=== PATIENT | female | born 1980 | race Caucasian/White ===

== ENCOUNTER → 2017-11-04 | Outpatient (CLI) | payer BC ==
[2017-11-04 08:44] LABS: Basophils # (A) 0.1 k/uL (0-0.2); Basophils % (A) 1 %; Eosinophils # (A) 0.2 k/uL (0-0.7); Eosinophils % (A) 3 %; HCT 41.9 % (34.0-46.0); HGB 14.4 gm/dL (11.4-16.0); Lymphocytes # (A) 2.8 k/uL (1.0-4.8); Lymphocytes % (A) 30 %; MCH 31.4 pg (25.0-35.0); MCHC 34.3 g/dL (31.0-37.0); MCV 91.4 fL (80.0-100.0); Mean Platelet Volume 7.7; Monocytes # (A) 0.4 k/uL (0-1.0); Monocytes % (A) 4 %; Neutrophils # (A) 5.6 k/uL (1.3-7.7); Neutrophils % (A) 62 %; Platelet Count 220 k/uL (150-450); RBC 4.58 m/uL (3.80-5.40); RDW 12.2 % (11.5-15.5); WBC 9.1 k/uL (3.8-10.6)
== END | disposition home or self-care (01) ==
LOC: LABPAT 08:24
PROVIDERS: ATTEND Obstetrics & Gynecology
DX: Z01.812 Encounter for preprocedural laboratory examination (principal)
CPT/HCPCS: 36415; 85025

== ENCOUNTER → 2018-01-24 | Outpatient (CLI) | payer BC ==
[2018-01-24 12:11] LABS: Basophils % (A) 1 %; Eosinophils # (A) 0.2 k/uL (0-0.7); Eosinophils % (A) 2 %; HCT 40.2 % (34.0-46.0); HGB 13.8 gm/dL (11.4-16.0); Lymphocytes # (A) 1.8 k/uL (1.0-4.8); Lymphocytes % (A) 26 %; MCH 31.1 pg (25.0-35.0); MCHC 34.3 g/dL (31.0-37.0); MCV 90.5 fL (80.0-100.0); Monocytes # (A) 0.3 k/uL (0-1.0); Monocytes % (A) 4 %; Neutrophils # (A) 4.7 k/uL (1.3-7.7); Neutrophils % (A) 67 %; Platelet Count 202 k/uL (150-450); RBC 4.45 m/uL (3.80-5.40); RDW 12.5 % (11.5-15.5)
[2018-01-24 12:23] LABS: Anion Gap 7 mmol/L; Blood Urea Nitrogen 11 mg/dL (7-17); Calcium 9.2 mg/dL (8.4-10.2); Carbon Dioxide 25 mmol/L (22-30); Chloride 108 mmol/L (98-107); Glucose 93 mg/dL (74-99); Potassium 4.7 mmol/L (3.5-5.1); Sodium 140 mmol/L (137-145)
== END | disposition home or self-care (01) ==
LOC: LABWHC1 11:28
PROVIDERS: ATTEND Obstetrics & Gynecology
DX: Z01.812 Encounter for preprocedural laboratory examination (principal)
CPT/HCPCS: 36415; 80048; 85025

== ENCOUNTER 2018-01-31 05:46 | Day surgery (SDC) | payer BC ==
[2018-01-24 15:47] VITALS: BMI 32.3
[~2018-01-31 05:46] MED LIST: ceFAZolin IN SWFI 2 GM/20 ML SYRINGE IVP ONE
[2018-01-31] MEDS ORDERED: ONDANSETRON 4 MG/2 ML VIAL IVP ONE (05:57)
[2018-01-31] MEDS ORDERED: DEXAMETHASONE SOD PHOSPHATE 10 MG/ML 1 ML VIAL IV ONE (05:57)
[2018-01-31] MEDS ORDERED: HYDROmorphone 0.5 MG/0.5 ML SYRINGE IVP PRN (05:57)
[2018-01-31] MEDS: LACTATED RINGERS 1,000 ML IV SCH (06:34)
[2018-01-31] MEDS ORDERED: LIDOCAINE 1% 20 ML VIAL (10MG/ML) FOR IV START INTRADERMA ONE (06:34)
--- NOTE | 2018-01-31 07:33 | P.HPOB ---
History of Present Illness H&P Date: 01/31/18 Chief Complaint: Menorrhagia: Dysmenorrhea Mindi is a 37-year-old female who has a history of heavy and painful periods this has been going on for a number of months and is not improving. She is scheduled for a robotic-assisted laparoscopic hysterectomy possible KIRILL and possible BSO. Risks/benefits/alternatives to this procedure were discussed with the patient in detail and all questions were answered for her prior to proceeding to the operating room. It was also noted on ultrasound she does have a thickened endometrium ultrasound shows her uterus to be 9 x 5 x 4 cm. Discussing options with the patient discussions for more conservative management were made but she is certain that she would prefer to have some type of permanent solution. Past Medical History Past Medical History: No Reported History Additional Past Medical History / Comment(s): mennorhagia History of Any Multi-Drug Resistant Organisms: None Reported Past Surgical History: Adenoidectomy, Section, Cholecystectomy, Tubal Ligation Past Anesthesia/Blood Transfusion Reactions: No Reported Reaction Smoking Status: Current every day smoker - Past Family History Sister(s) Family Medical History: Cancer, Deep Vein Thrombosis (DVT) Medications and Allergies Home Medications Medication Instructions Recorded Confirmed Type No Known Home Medications 01/24/18 01/24/18 History Allergies Allergy/AdvReac Type Severity Reaction Status Date / Time No Known Allergies Allergy Verified 01/24/18 15:43 Exam Osteopathic Statement: *. No significant issues noted on an osteopathic structural exam other than those noted in the History and Physical/Consult. Vital Signs Temp Pulse Resp BP Pulse Ox 01/31/18 06:30 97.0 F L 79 16 114/66 99 - OBG Physical Exam Breast: both: normal (no masses) Abdomen: bowel sounds normal, no diffuse tenderness, no bruit present, no guarding noted, no hepatomegaly, no splenomegaly, no mass Vulva: both: normal Vagina: normal moisture, no discharge Cervix: no lesion, no discharge Uterus: normal size, normal contour Adnexa: both: normal Anus/Rectum: normal perianal skin, no rectal mass, no hemorrhoids, heme negative
[2018-01-31] MEDS ORDERED: GLYCOPYRROLATE 0.2 MG/ML 2 ML VIAL ONE (07:40)
[2018-01-31] MEDS ORDERED: fentaNYL (PF) 50 MCG/ML 2 ML AMP ONE (07:40)
[2018-01-31] MEDS ORDERED: LIDOCAINE 1% INJ 10MG/ML (20 ML MDV) ONE (07:40)
[2018-01-31] MEDS ORDERED: ROCURONIUM BROMIDE 10 MG/ML 10 ML VIAL IV ONE (07:40)
[2018-01-31] MEDS ORDERED: MEPERIDINE 50 MG/ML SYRINGE ONE (07:40)
[2018-01-31] MEDS ORDERED: SUCCINYLCHOLINE CHLORIDE 100 MG/5 ML SYR IV ONE (07:40)
[2018-01-31] MEDS ORDERED: PROPOFOL 10 MG/ML 20 ML VIAL IV ONE (07:40)
[2018-01-31] MEDS ORDERED: MIDAZOLAM 2 MG/2 ML VIAL ONE (07:40)
[2018-01-31] MEDS ORDERED: NEOSTIGMINE 1 MG/ML 10 ML VIAL ONE (07:40)
[2018-01-31] MEDS ORDERED: HYDROmorphone (PF) 1 MG/ML ONE (07:40)
[2018-01-31] MEDS ORDERED: ROPIVACAINE 5 MG/ML 30 ML VIAL MISCELLANE ONE ×2 (08:15)
[2018-01-31] MEDS ORDERED: KETOROLAC 30 MG/ML 1 ML VIAL IVP PRN (08:56)
[2018-01-31] MEDS ORDERED: ONDANSETRON 4 MG/2 ML VIAL IVP PRN (08:56)
[2018-01-31] MEDS ORDERED: Acetaminophen-Codeine 300-30mg TAB PO PRN ×2 (08:56)
[2018-01-31] MEDS ORDERED: diphenhydrAMINE 50 MG/ML 1 ML VIAL IVP PRN (08:56)
[2018-01-31] MEDS ORDERED: SIMETHICONE 80 MG CHEWABLE PO PRN (08:56)
--- NOTE | 2018-01-31 09:03 | P.OP ---
Date of Procedure: 01/31/18 Preoperative Diagnosis: Menorrhagia and pelvic pain Postoperative Diagnosis: Same with adhesions Procedure(s) Performed: Robotic-assisted laparoscopic hysterectomy with lysis of adhesions Anesthesia: SARAH BETH Surgeon: Yaya Gonzalez Prep Cook #1: Yasmin James Estimated Blood Loss (ml): 10 IV fluids (ml): 700 Urine output (ml): 300 Pathology: other (Uterus and cervix) Condition: stable Disposition: floor Operative Findings: Normal uterus and ovaries. However, left ovary was firmly attached to the omentum and needed to be bluntly and sharply dissected free there was also adhesions from prior section of the anterior uterus to the anterior abdominal wall Description of Procedure: Patient was taken to the operating suite where a general anesthetic was found be adequate. She was prepped and draped in the normal sterile fashion and placed in the dorsal lithotomy position. Initially weighted speculum was inserted into the vagina and the anterior lip of the cervix was identified and grasped with a single-tooth tenaculum. It was then sounded to 9 cm and cup sizes measured 2.5 cm cervix was then dilated and a Princess manipulator was inserted without difficulty with sutures placed at 3 and 9. Pinon catheter was then placed and other instruments were removed. Gloves were then changed and attention was turned to the abdominal portion of the procedure where 2 mL of 4% Marcaine was injected approximate 2 cm above the umbilicus in the midline through this injected anesthetic a 5 mm skin incision was made and through this incision under direct visualization with an optical trocar and sleeve the camera was inserted. Once peritoneal placement was assured gas was allowed to fully insufflate the abdomen and patient was then placed in steep Trendelenburg position. 2 lateral ports were then placed approximately 10 cm from the umbilicus on the left and right side and through these 8 mm da Elsa ports and sleeves were inserted. A fourth port and sleeve was then inserted between the left lateral and the medial port. Camera port was then exchanged for a robotic camera port and robot was brought in and docked. Once fully docked a scissor and placed in the one arm and a [place] grasper in the 2 arm. I did break scrub at this point and go to the console. Observations the pelvis were noted and lysis of adhesions was performed. Once ovary was free from omentum the utero-ovarian ligament was identified cauterized and transected. Tissues through the broad ligament and mesosalpinx were then cauterized and cut to the round ligament round ligament again was cauterized and transected and the anterior and posterior leaves of this ligament were developed. Left uterine vascularity was I identified and cauterized. At this point undermining the bladder flap was done using the [place] undermining and a scissor to incise across face of the uterus the bladder was then bluntly dissected out of the operative field. Right side of the uterus was then a similar fashion developed. Once this was completed balloon was blown up in the Princess manipulator and an anterior colpotomy was made. This opening was then extended around the cervix following the blue cup in a 360 fashion until cervix and vagina were . Uterus was then brought into the vagina to maintain pneumoperitoneum and cauterization of any small bleeders worse performed. At this point with good hemostasis noted instruments were exchanged for a cardia grasper and a make suture cut and using to OB lock suture the vaginal cuff was reapproximated in a running fashion. Excellent hemostasis was noted at this point therefore instruments were removed following observation of the left ovary to verify hemostasis on the left ovary where lysis of adhesions was performed. Gas was then allowed to expel from the abdomen and 5 deep breaths were provided. Dr. James did close these incisions with 4-0 Vicryl subcuticularly and I did do a cystoscopy with excellent flow noted from both ureteral jets. Sponge, lap, needle counts were all correct 2. Patient was then taken to the recovery room in stable and satisfactory condition.
[2018-01-31 10:06] VITALS: RESP 16
[2018-01-31] MEDS: SENNOSIDES-DOCUSATE SODIUM 1 EACH TAB PO SCH (10:43)
[2018-02-01] MEDS: SENNOSIDES-DOCUSATE SODIUM 1 EACH TAB PO SCH ×2 (01:15→10:06)
--- NOTE | 2018-02-01 07:14 | P.DS ---
Providers Expected date of discharge: 02/01/18 Attending physician: Yaya Gonzalez Primary care physician: Man Hines [facility] Course: Mindi is doing very well postop day 1. She is ambulating, voiding, and she is tolerating her diet. She voices no complaints. Vital signs are stable and afebrile. Heart regular, lungs clear, extremities without pain. Her abdomen is soft she has bowel sounds and she is passing flatus. Her incisions are otherwise clean dry and intact. Assessment postop day 1. Plan discharged home follow up with me in 1 week. Prescription for Motrin was sent to her pharmacy discharge instructions were thoroughly reviewed. All of the questions are answered for her at this time and she is stable for discharge. Patient Condition at Discharge: Good Plan - Discharge Summary New Discharge Prescriptions: New Ibuprofen [Motrin] 600 mg PO Q6HR PRN #30 tab PRN Reason: Pain Discharge Medication List Ibuprofen [Motrin] 600 mg PO Q6HR PRN #30 tab 02/01/18 [Rx] Follow up Appointment(s)/Referral(s): Yaya Gonzalez DO [Doctor of Osteopathic Medicine] - 1 Week Activity/Diet/Wound Care/Special Instructions: No heavy lifting, limit stairs and driving, and pelvic rest. If any high temperatures, heavy bleeding, or severe pain call my office Discharge Disposition: HOME SELF-CARE
[2018-02-01 09:57] VITALS: BP 115/71; PULSE 91; TEMP 98
== END 2018-02-01 09:55 | disposition home or self-care (01) ==
LOC: OR 05:46 → 4FBP 09:10 → OR 02-01 09:55
PROVIDERS: ATTEND Obstetrics & Gynecology
DX: N80.0 Endometriosis of uterus (principal); N72 Inflammatory disease of cervix uteri; N73.6 Female pelvic peritoneal adhesions (postinfective); F17.210 Nicotine dependence, cigarettes, uncomplicated; Z98.51 Tubal ligation status; Z90.49 Acquired absence of other specified parts of digestive tract
CPT/HCPCS: 81025; 86900; 86901; 86850; 88309; 58570; J1100; J2405; J2795; J0690; 88307

== ENCOUNTER → 2021-01-02 | Outpatient (CLI) | payer BC ==
--- NOTE | 2021-01-02 09:53 | MM ---
Reason for exam: clinical finding. Baseline mammogram. History: Family history of breast cancer in maternal grandmother. Indicated problem(s): pain in the left breast. Physical Findings: Nurse did not find any significant physical abnormalities on exam. MG 3D Diag Mammo W/Cad ENA Bilateral CC and MLO view(s) were taken. There are scattered fibroglandular densities. No correlate for left upper outer quadrant pain and ultrasound is recommended. These results were verbally communicated with the patient and result sheet given to the patient on 01/02/21. ASSESSMENT: Incomplete: need additional imaging evaluation, BI-RAD 0 RECOMMENDATION: Ultrasound of the left breast.
--- NOTE | 2021-01-02 09:54 | USB ---
Reason for exam: additional evaluation requested from abnormal screening. History: Family history of breast cancer in maternal grandmother. US Breast Limited LT Left limited breast ultrasound including focal area of concern, retroareolar and axilla demonstrates no cystic or solid lesion seen. These results were verbally communicated with the patient and result sheet given to the patient on 01/02/21. ASSESSMENT: Negative, BI-RAD 1 RECOMMENDATION: Routine screening mammogram of both breasts in 1 year. Manage patient on a clinical basis. Follow up with doctor for pain.
== END | disposition home or self-care (01) ==
LOC: RADMAMWWP 08:15
PROVIDERS: ATTEND Family Medicine
DX: R92.2 Inconclusive mammogram (principal); Z80.3 Family history of malignant neoplasm of breast
CPT/HCPCS: 77062; 77066

== ENCOUNTER 2021-06-16 22:52 | Inpatient (IN) | payer BC ==
[2021-06-16] MEDS ORDERED: ACETAMINOPHEN TAB 325 MG TAB PO STA (23:31)
[2021-06-16] MEDS ORDERED: SODIUM CHLORIDE 0.9% 1,000 ML IV ONE (23:31)
[2021-06-16 23:37] LABS: Glucose,Whole Blood 87 mg/dL (75-99)
--- NOTE | 2021-06-17 00:06 | CT ---
EXAMINATION TYPE: CT brain wo con DATE OF EXAM: 06/16/2021 COMPARISON: None HISTORY: AMS CT DLP: 1074.4 mGycm Automated exposure control for dose reduction was used. Images of the brain obtained without contrast. There is hypodensity in the left temporal lobe white matter with some mass effect. There is slight sh ift of the midline to the right side. There is some effacement of the third ventricle. There is effac ement of the temporal horn left lateral ventricle. Calvarium is intact. IMPRESSION: Temporal lobe hypodensity consistent with edema and possible tumor. Follow-up recommended. No intracr anial hemorrhage. Contrast CT or MR scan recommended for further evaluation.
[2021-06-17] MEDS ORDERED: ACETAMINOPHEN IV (For NPO) 1,000 MG in EMPTY BAG 1 BAG IVPB ONE (00:08)
--- NOTE | 2021-06-17 00:11 | XR ---
EXAMINATION TYPE: XR chest 1V DATE OF EXAM: 06/16/2021 COMPARISON: NONE HISTORY: Altered mental status. Left-sided weakness TECHNIQUE: Single view FINDINGS: Heart is normal. Lungs are clear of consolidation. There is slight coarsening of the inters titial markings. There is no obvious heart failure. There are chest leads. There is no pleural effusi on. IMPRESSION: Increased interstitial markings. Normal heart.
[2021-06-17] MEDS ORDERED: DEXAMETHASONE SOD PHOSPHATE 4 MG/ML 1 ML VIAL IVP STA (00:17)
[2021-06-17] MEDS ORDERED: HYDROmorphone 0.5 MG/0.5 ML SYRINGE IVP STA (00:26)
[2021-06-17] MEDS ORDERED: ONDANSETRON 4 MG/2 ML VIAL IVP STA (00:26)
[2021-06-17 00:36] LABS: ALT 20 U/L (4-34); AST 24 U/L (14-36); African American GFR (CKD) >90 (>60 ml/min/1.73 sqM); Albumin 4.2 g/dL (3.5-5.0); Alcohol <10 mg/dL; Alkaline Phosphatase 56 U/L (38-126); Anion Gap 12 mmol/L; Basophils % (A) 0 %; Blood Urea Nitrogen 12 mg/dL (7-17); Calcium 9.5 mg/dL (8.4-10.2); Carbon Dioxide 22 mmol/L (22-30); Chloride 102 mmol/L (98-107); Eosinophils # (A) 0.1 k/uL (0-0.7); Eosinophils % (A) 1 %; Glucose 95 mg/dL (74-99); HCT 38.5 % (34.0-46.0); HGB 13.3 gm/dL (11.4-16.0); Lymphocytes # (A) 0.3 k/uL (1.0-4.8); Lymphocytes % (A) 3 %; MCH 31.6 pg (25.0-35.0); MCHC 34.5 g/dL (31.0-37.0); MCV 91.4 fL (80.0-100.0); Mean Platelet Volume 8.2; Monocytes # (A) 0.4 k/uL (0-1.0); Monocytes % (A) 5 %; Neutrophils # (A) 8.7 k/uL (1.3-7.7); Neutrophils % (A) 90 %; Non-African American GFR(CKD) >90 (>60 ml/min/1.73 sqM); Platelet Count 196 k/uL (150-450); RBC 4.21 m/uL (3.80-5.40); RDW 11.8 % (11.5-15.5); Sodium 136 mmol/L (137-145); Total Bilirubin 0.4 mg/dL (0.2-1.3); Total Protein 6.7 g/dL (6.3-8.2); WBC 9.6 k/uL (3.8-10.6)
[2021-06-17] MEDS ORDERED: NALOXONE 0.4 MG/ML 1 ML VIAL IV PRN (00:36)
[2021-06-17] MEDS ORDERED: ACETAMINOPHEN TAB 325 MG TAB PO PRN (00:36)
[2021-06-17] MEDS ORDERED: HYDROmorphone 1 MG/ML 1 ML SYRINGE IVP PRN (00:36)
[2021-06-17 00:38] LABS: INR 0.9 (<1.2); Prothrombin Time 10.1 sec (9.0-12.0)
[2021-06-17] MEDS ORDERED: SODIUM CHLORIDE 0.9% 1,000 ML IV SCH (00:45)
--- NOTE | 2021-06-17 00:56 | ED ---
General Adult HPI - General Chief complaint: Arrhythmia/Palpitations Stated complaint: Afib, arm numbness Time Seen by Provider: 06/16/21 23:16 Source: family Mode of arrival: wheelchair Limitations: no limitations - History of Present Illness Initial comments: This patient is a 41-year-old woman who presents here to be evaluated for left sided numbness and weakness. The patient states this and come on this evening after she had been out shopping. On she also has not been feeling well, including having some chills. Other review of systems she has been having headaches mainly on the left side of her head going back for about 2 months. She states that today the head pain is moderate to severe. It is aching. She has not been able to find anything that arrives relief. There is no neck stiffness. -: hour(s) Location: left, upper extremity, lower extremity Severity scale (1-10): 0 Consistency: constant Improves with: none Worsens with: none Associated Symptoms: fever/chills, headaches Treatments Prior to Arrival: none - Related Data Previous Rx's Medication Instructions Recorded Ibuprofen [Motrin] 600 mg PO Q6HR PRN #30 tab 02/01/18 Allergies Allergy/AdvReac Type Severity Reaction Status Date / Time No Known Allergies Allergy Verified 01/31/18 10:46 Review of Systems ROS Statement: Those systems with pertinent positive or pertinent negative responses have been documented in the HPI. ROS Other: All systems not noted in ROS Statement are negative. Constitutional: Reports: chills. Denies: weakness Eyes: Denies: eye pain, vision change ENT: Denies: ear pain, hearing loss, congestion Respiratory: Denies: cough, dyspnea Cardiovascular: Denies: chest pain, edema Gastrointestinal: Reports: nausea. Denies: abdominal pain, vomiting, diarrhea Genitourinary: Denies: dysuria, hematuria Musculoskeletal: Denies: back pain Skin: Denies: rash Neurological: Reports: as per HPI, headache, weakness, numbness Hematological/Lymphatic: Denies: easy bleeding Past Medical History Past Medical History: No Reported History History of Any Multi-Drug Resistant Organisms: None Reported Past Surgical History: Adenoidectomy, Section, Tubal Ligation Past Psychological History: No Psychological Hx Reported Smoking Status: Never smoker Past Alcohol Use History: Rare Past Drug Use History: None Reported General Exam Limitations: no limitations General appearance: alert, in no apparent distress Head exam: Present: atraumatic, normocephalic Eye exam: Present: normal appearance. Absent: scleral icterus, conjunctival injection ENT exam: Present: normal oropharynx Neck exam: Present: normal inspection, full ROM. Absent: tenderness, meningismus Respiratory exam: Present: normal lung sounds bilaterally. Absent: respiratory distress, wheezes, rales, rhonchi, stridor Cardiovascular Exam: Present: tachycardia, normal heart sounds. Absent: systolic murmur, diastolic murmur, rubs, gallop GI/Abdominal exam: Present: soft. Absent: distended, tenderness, guarding, rebound, rigid, mass Extremities exam: Present: normal inspection, normal capillary refill. Absent: pedal edema, calf tenderness Back exam: Present: normal inspection. Absent: CVA tenderness (R), CVA tenderness (L) Neurological exam: Present: alert, oriented X3, CN II-XII intact. Absent: motor sensory deficit Skin exam: Present: warm, dry, intact, normal color. Absent: rash Course Vital Signs 06/16/21 06/17/21 23:08 01:00 Temperature 102.6 F H Pulse Rate 109 H 96 Respiratory 20 16 Rate Blood Pressure 132/76 131/80 O2 Sat by Pulse 98 97 Oximetry EKG Findings - EKG Results: EKG: interpreted by TURNER, sinus rhythm, normal axis, normal QRS, normal ST/T EKG shows: tachycardia (Rate 111 bpm) Medical Decision Making - Lab Data Result diagrams: 06/16/21 23:57 06/16/21 23:57 Lab Results 06/16/21 06/16/21 06/16/21 Range/Units 23:27 23:31 23:57 WBC 9.6 (3.8-10.6) k/uL RBC 4.21 (3.80-5.40) m/uL Hgb 13.3 (11.4-16.0) gm/dL Hct 38.5 (34.0-46.0) % MCV 91.4 (80.0-100.0) fL MCH 31.6 (25.0-35.0) pg MCHC 34.5 (31.0-37.0) g/dL RDW 11.8 (11.5-15.5) % Plt Count 196 (150-450) k/uL MPV 8.2 Neutrophils % 90 % Lymphocytes % 3 % Monocytes % 5 % Eosinophils % 1 % Basophils % 0 % Neutrophils # 8.7 H (1.3-7.7) k/uL Lymphocytes # 0.3 L (1.0-4.8) k/uL Monocytes # 0.4 (0-1.0) k/uL Eosinophils # 0.1 (0-0.7) k/uL Basophils # 0.0 (0-0.2) k/uL PT (9.0-12.0) sec INR (<1.2) APTT (22.0-30.0) sec Sodium (137-145) mmol/L Potassium (3.5-5.1) mmol/L Chloride (98-107) mmol/L Carbon Dioxide (22-30) mmol/L Anion Gap mmol/L BUN (7-17) mg/dL Creatinine (0.52-1.04) mg/dL Est GFR (CKD-EPI)AfAm (>60 ml/min/1.73 sqM) Est GFR (CKD-EPI)NonAf (>60 ml/min/1.73 sqM) Glucose (74-99) mg/dL POC Glucose (mg/dL) 87 (75-99) mg/dL POC Glu Curriculum And Instruction Director ID Jared Garza Plasma Lactic Acid Thomas (0.7-2.0) mmol/L Calcium (8.4-10.2) mg/dL Total Bilirubin (0.2-1.3) mg/dL AST (14-36) U/L ALT (4-34) U/L Alkaline Phosphatase (38-126) U/L Troponin I (0.000-0.034) ng/mL Total Protein (6.3-8.2) g/dL Albumin (3.5-5.0) g/dL Serum Alcohol mg/dL Coronavirus (PCR) Not Detected (Not Detectd) 06/16/21 06/16/21 06/16/21 Range/Units 23:57 23:57 23:57 WBC (3.8-10.6) k/uL RBC (3.80-5.40) m/uL Hgb (11.4-16.0) gm/dL Hct (34.0-46.0) % MCV (80.0-100.0) fL MCH (25.0-35.0) pg MCHC (31.0-37.0) g/dL RDW (11.5-15.5) % Plt Count (150-450) k/uL MPV Neutrophils % % Lymphocytes % % Monocytes % % Eosinophils % % Basophils % % Neutrophils # (1.3-7.7) k/uL Lymphocytes # (1.0-4.8) k/uL Monocytes # (0-1.0) k/uL Eosinophils # (0-0.7) k/uL Basophils # (0-0.2) k/uL PT 10.1 (9.0-12.0) sec INR 0.9 (<1.2) APTT 23.0 (22.0-30.0) sec Sodium 136 L (137-145) mmol/L Potassium 4.0 (3.5-5.1) mmol/L Chloride 102 (98-107) mmol/L Carbon Dioxide 22 (22-30) mmol/L Anion Gap 12 mmol/L BUN 12 (7-17) mg/dL Creatinine 0.67 (0.52-1.04) mg/dL Est GFR (CKD-EPI)AfAm >90 (>60 ml/min/1.73 sqM) Est GFR (CKD-EPI)NonAf >90 (>60 ml/min/1.73 sqM) Glucose 95 (74-99) mg/dL POC Glucose (mg/dL) (75-99) mg/dL POC Glu Curriculum And Instruction Director ID Plasma Lactic Acid Thomas (0.7-2.0) mmol/L Calcium 9.5 (8.4-10.2) mg/dL Total Bilirubin 0.4 (0.2-1.3) mg/dL AST 24 (14-36) U/L ALT 20 (4-34) U/L Alkaline Phosphatase 56 (38-126) U/L Troponin I <0.012 (0.000-0.034) ng/mL Total Protein 6.7 (6.3-8.2) g/dL Albumin 4.2 (3.5-5.0) g/dL Serum Alcohol <10 mg/dL Coronavirus (PCR) (Not Detectd) 06/17/21 Range/Units 00:08 WBC (3.8-10.6) k/uL RBC (3.80-5.40) m/uL Hgb (11.4-16.0) gm/dL Hct (34.0-46.0) % MCV (80.0-100.0) fL MCH (25.0-35.0) pg MCHC (31.0-37.0) g/dL RDW (11.5-15.5) % Plt Count (150-450) k/uL MPV Neutrophils % % Lymphocytes % % Monocytes % % Eosinophils % % Basophils % % Neutrophils # (1.3-7.7) k/uL Lymphocytes # (1.0-4.8) k/uL Monocytes # (0-1.0) k/uL Eosinophils # (0-0.7) k/uL Basophils # (0-0.2) k/uL PT (9.0-12.0) sec INR (<1.2) APTT (22.0-30.0) sec Sodium (137-145) mmol/L Potassium (3.5-5.1) mmol/L Chloride (98-107) mmol/L Carbon Dioxide (22-30) mmol/L Anion Gap mmol/L BUN (7-17) mg/dL Creatinine (0.52-1.04) mg/dL Est GFR (CKD-EPI)AfAm (>60 ml/min/1.73 sqM) Est GFR (CKD-EPI)NonAf (>60 ml/min/1.73 sqM) Glucose (74-99) mg/dL POC Glucose (mg/dL) (75-99) mg/dL POC Glu Curriculum And Instruction Director ID Plasma Lactic Acid Thomas 2.0 (0.7-2.0) mmol/L Calcium (8.4-10.2) mg/dL Total Bilirubin (0.2-1.3) mg/dL AST (14-36) U/L ALT (4-34) U/L Alkaline Phosphatase (38-126) U/L Troponin I (0.000-0.034) ng/mL Total Protein (6.3-8.2) g/dL Albumin (3.5-5.0) g/dL Serum Alcohol mg/dL Coronavirus (PCR) (Not Detectd) Disposition Clinical Impression: Fever, Mass of left temporal lobe Disposition: ADMITTED IP TO THIS HOSP Condition: Serious
[2021-06-17 01:10] LABS: Appearance,Urine Clear (Clear); Bilirubin,Urine Negative (Negative); Blood,Urine Trace (Negative); Color,Urine Yellow; Glucose,Urine (UA) Negative (Negative); Ketones,Urine Negative (Negative); Leukocyte Esterase,Urine Negative (Negative); Mucus,Urine Rare /hpf; Nitrite,Urine Negative (Negative); PH, Urine 5.5 (5.0-8.0); Protein,Urine Negative (Negative); Specific Gravity,Urine 1.021 (1.001-1.035); Squamous Epithelial Cell,Urine 3 /hpf (0-4); Urobilinogen,Urine <2.0 mg/dL (<2.0); WBC,Urine <1 /hpf (0-5)
[2021-06-17 01:19] LABS: Amphetamine Screen,Urine Not Detected (NotDetected); Barbiturate Screen,Urine Not Detected (NotDetected); Benzodiazepines Screen,Urine Not Detected (NotDetected); Cocaine Screen,Urine Not Detected (NotDetected); Methadone Screen, Urine Not Detected (NotDetected); Opiate Screen,Urine Not Detected (NotDetected); Oxycodone Screen, Urine Not Detected (NotDetected); Phencyclidine Screen,Urine Not Detected (NotDetected); Tricyclic Antidepressant,Urine Not Detected (NotDetected); Urn Cannabinoid Scrn Not Detected (NotDetected)
[2021-06-17] MEDS: HYDROmorphone 0.5 MG/0.5 ML SYRINGE IVP PRN ×2 (08:37→14:09)
[2021-06-17 08:49] VITALS: BP 120/73; PULSE 92; RESP 18; TEMP 98.3
[2021-06-17] MEDS ORDERED: FAMOTIDINE 20 MG TAB PO SCH (09:00)
[2021-06-17] MEDS ORDERED: PANTOPRAZOLE 40 MG/10 ML VIAL IVP SCH (10:15)
[2021-06-17] MEDS ORDERED: INSULIN ASPART (NovoLOG) 100 UNIT/ML VIAL SQ SCH (10:45)
[2021-06-17] MEDS ORDERED: ONDANSETRON 4 MG/2 ML VIAL IVP PRN (10:54)
[2021-06-17] MEDS: DEXAMETHASONE SOD PHOSPHATE 4 MG/ML 1 ML VIAL IVP SCH ×2 (11:02→14:16)
--- NOTE | 2021-06-17 11:06 | P.CNNES ---
History of Present Illness Consult date: 06/17/21 Requesting physician: Lynda Prakash Reason for Consult: head pain, temporal lobe density History of Present Illness: This is a 41-year-old woman who presented to the emergency department on 06/16/2021 for left sided weakness and numbness. Patient is accompanied by her significant other (Solo who is at bedside). She has been having headache over the bilateral frontal for past 3-4 months. She stated that the the pain was initially throbbing pain, intermittent over bilateral frontal region and was short lasting associated with lightheadedness but in the past 1-2 weeks headache is more severe, constant, 7/10, feels more pressure which radiates right side or left side of the brain all the way to the neck region associate was some photophobia and the photophobia. She does have nausea but denies any vomiting. Yesterday the patient noticed that she is having numbness and weakness over the entire left side of upper and lower extremity. She denies of any visual disturbance. Patient denies significant past medical history He denies of any weight loss. She is not aware of any family history with a brain mass. She stated that the she used to smoke half a pack a day and she's been smoking for 26 years and stopped in March 2021. Now she vapes. He denies of any illicit drug use. Some of the work-up in the hospital consisted of: She'll vital signs his blood pressure of 132/76, heart rate of 109, respiratory of 20, temperature of 102.6 Fahrenheit oral and pulse ox of 98% room air. Patient had the another a temperature rate of 102.6. The most recent the temperature is 98.[address] of the head is reported as temporal lobe hypodensity consistent with edema and possible tumor. Follow-up recommended. No intracranial hemorrhage. Contrast CT or MRI scan recommended for further evaluation. I personally reviewed the images and I do agree there is hypodensity that is irregular in the shape over left temporal/parietal region with mass effect on the surrounding region as well as the mass effect over the left lateral ventricle and 3rd ventricle and there is midline shift. There is also some hydrocephalus over the right lateral ventricle. Initial white blood cell is 9.6 thousand, hemoglobin is 13.3, hematocrit is 30.5, platelet is 196,000. The sodium is 136 otherwise of the rest of the chemistry panel is unremarkable Calcium is 9.5. Urinalysis is negative for urinary tract fraction. Urine drug screen is nondetected and serum alcohol was less than 10 Dash virus PCR was not detected PT is 10.1, INR is 0.9, PTT is 23.0. In the ED the patient was given Decadron 4 mg IV once and was given ceftriaxone 1 g IV once. Review of Systems Review of system: The 12 point system was reviewed and apparent positive and negative per HPI. Past Medical History Past Medical History: No Reported History History of Any Multi-Drug Resistant Organisms: None Reported Past Surgical History: Adenoidectomy, Section, Cholecystectomy, Tubal Ligation Additional Past Surgical History / Comment(s): uterus removed Past Anesthesia/Blood Transfusion Reactions: No Reported Reaction Past Psychological History: ADD/ADHD Smoking Status: Former smoker Past Alcohol Use History: Rare Additional Past Alcohol Use History / Comment(s): quit smoking march 2021 Past Drug Use History: None Reported - Past Family History Mother Family Medical History: Coronary Artery Disease (CAD), Myocardial Infarction (ME) Sister(s) Additional Family Medical History / Comment(s): cervical cancer Medications and Allergies Home Medications Medication Instructions Recorded Confirmed Type Ergocalciferol [Vitamin D2 (1250 1,250 mcg PO BENTLEY 06/17/21 06/17/21 History Mcg = 61332 Iu)] Ibuprofen [Motrin Ib] 400 mg PO Q6H PRN 06/17/21 06/17/21 History Phentermine HCl 37.5 mg PO DAILY 06/17/21 06/17/21 History Allergies Allergy/AdvReac Type Severity Reaction Status Date / Time bupropion [From Wellbutrin] AdvReac Itching Verified 06/17/21 07:19 Physical Examination - Vital Signs Vital Signs: Vital Signs Temp Pulse Pulse Pulse Resp BP BP 06/17/21 07:00 98.3 F 92 18 120/73 06/17/21 03:33 98.7 F 96 16 111/73 06/17/21 03:00 99.7 F H 82 16 116/80 06/17/21 02:45 99.7 F H 87 16 114/68 06/17/21 02:30 100.2 F H 89 20 115/80 06/17/21 02:00 89 20 116/66 06/17/21 01:00 86 20 116/78 06/17/21 00:30 100.9 F H 90 16 128/80 06/17/21 00:15 90 16 128/81 06/17/21 00:00 90 16 126/80 06/16/21 23:45 92 20 140/77 06/16/21 23:30 102.6 F H 82 92 16 136/77 06/16/21 23:08 102.6 F H 109 H 20 132/76 Pulse Ox 06/17/21 07:00 98 06/17/21 03:33 97 06/17/21 03:00 98 06/17/21 02:45 97 06/17/21 02:30 97 06/17/21 02:00 98 06/17/21 01:00 98 06/17/21 00:30 97 06/17/21 00:15 98 06/17/21 00:00 97 06/16/21 23:45 98 06/16/21 23:30 98 06/16/21 23:08 98 Intake and Output 06/16/21 06/17/21 06/17/21 22:59 06:59 14:59 Intake Total 120 Balance 120 Intake: Oral 120 Other: Voiding Method Toilet # Voids 1 Weight 90.718 kg GENERAL: The patient is lying in bed and is moderate acute distress. CHEST: The heart rate is regular rate rhythm. No murmurs to auscultation. LUNG: Clear to auscultation bilaterally no wheezing noted throughout. Not labored breathing. ABDOMEN/GI: Bowel sounds present in all 4 quadrants. No tenderness to palpation throughout. NEUROLOGICAL: Higher mental function: The patient is awake, alert, oriented to self, place and time. Patient is following commands. No aphasia and no neglect. Cranial nerves: The pupils are round, equal and reactive to light and accommoda tion. Visual otoole are full to confrontation throughout. Extraocular movement is intact no nystagmus is noted. Facial sensation is normal to touch throughout. The facial strength is normal throughout. Hearing is normal bilaterally to hand rub. Tongue is midline and moved [id number] without any difficulty. No dysarthria is noted. Shoulder shrug is normal bilaterally. Motor: Gait is deferred. The strength is left upper extremity is 4+. Otherwise 5 over 5 throughout. Normal tone and bulk. Cerebellum: Normal finger to nose bilaterally. Sensation: Sensation is normal to touch throughout. Reflexes (right/left): 1+ throughout. Plantars are downgoing bilaterally. Results - Laboratory Findings CBC and BMP: 06/16/21 23:57 06/16/21 23:57 Abnormal Lab Findings: Abnormal Labs 06/16/21 06/16/21 06/17/21 23:57 23:57 00:41 Neutrophils # 8.7 H Lymphocytes # 0.3 L Sodium 136 L Urine Blood Trace H Urine Mucus Rare H Assessment and Plan Assessment: Hypodensity over the left temporal/parietal region: Likely due to intracranial mass. Vasogenic edema due to above Left hemiparesis due to above Cephalgia (over the past 3-4 months) due to above Plan: MRI of the brain with and without is ordered and is pending I started the patient on Decadron 4 mg IV every 6 hours and on IV proton 40 milligrams daily. Recommend sugar control management and will defer to the primary team. Every 4 hours neuro checks Oncology team is consulted Recommend the patient to be transferred for neurosurgical evaluation. We'll defer the rest of the medical management to the primary team UPDATE: Patient had MRI of the brain is reported as 3.0 cm a visit enhancing left temporal mass with vasogenic edema and subtle midline shift suspected meningioma. Patient is going to be transferred to [facility] for neurosurgical evaluation. The plan is discussed with patient, her significant (who is at bedside) and primary team. Thank you for the consultation. Steve Burton M.D. Neuro-Hospitalist Time with Patient: Greater than 30
[2021-06-17 12:48] LABS: Glucose,Whole Blood 108 mg/dL (75-99)
--- NOTE | 2021-06-17 12:48 | P.HPIM ---
History of Present Illness H&P Date: 06/17/21 Chief Complaint: Worsening headache 1 week History and Physical and Transfer/Discharge Summary This is a 41-year-old female with past medical history of ADD, ADHD, former smoker-recently quit smoking March 2021, family history of cervical cancer/CAD/ID, presented to the ER with worsening continuous throbbing headache/pressure 1 week, currently right frontal side worse than left accompanied by lightheadedness, dizziness, chills - vague historian, later discovered from EHR that patient also presented with left-sided weakness and numbness which has currently resolved. Denies focal deficits. Patient reports headaches initially started 2 months ago with no prior history. Denies seizure activity, denies loss of appetite weight loss. Denies cough congestion or shortness of breath. Denies chest pain, palpitations. Recently quit smoking in March 2021. Patient smoked half a pack a day 26 years, currently vapes. Denies recreational drug use. Brain CT reports temporal lobe hypodensity consistent with edema possible tumor, slight shift of midline to the right side , some effacement of the third ventricle , effacement of temporal horn left l ateral ventricle ,follow-up recommended, no intracranial hemorrhage. MRI pending.Denies family history of brain mass. Chest x-ray reported lungs clear consolidation with slight coarsening of interstitial markings. On admission temperature 102.6, pulse 109, heart rate 92, respiratory rate 20, blood pressure 132/76, maintaining O2 sats of 98% on room air. Currently afebrile, heart rate 82, respiratory rate 16-18, blood pressure 120/73, maintaining O2 sats of 98% on room air. Wound to the PC 9.6, hemoglobin 13.3, platelets 196, coagulation panel unremarkable. Chemistry panel unremarkable with minimal decrease of sodium, 136, lactic acid 2, calcium 9.5. UA negative. Toxicology screen non detected with serum alcohol less than 10. Dash virus not detected. Blood cultures in progress. IV Decadron, IV Rocephin initiated in the ER. Oncology consult in place. Neurology consulted. Review of Systems ROS Statement: Those systems with pertinent positive or pertinent negative responses have been documented in the HPI. ROS Other: All systems not noted in ROS Statement are negative. Past Medical History Past Medical History: No Reported History History of Any Multi-Drug Resistant Organisms: None Reported Past Surgical History: Adenoidectomy, Section, Cholecystectomy, Tubal Ligation Additional Past Surgical History / Comment(s): uterus removed Past Anesthesia/Blood Transfusion Reactions: No Reported Reaction Past Psychological History: ADD/ADHD Smoking Status: Former smoker Past Alcohol Use History: Rare Additional Past Alcohol Use History / Comment(s): quit smoking march 2021 Past Drug Use History: None Reported - Past Family History Mother Family Medical History: Coronary Artery Disease (CAD), Myocardial Infarction (ID) Sister(s) Additional Family Medical History / Comment(s): cervical cancer Medications and Allergies Home Medications Medication Instructions Recorded Confirmed Type Ergocalciferol [Vitamin D2 (1250 1,250 mcg PO BENTLEY 06/17/21 06/17/21 History Mcg = 65801 Iu)] Ibuprofen [Motrin Ib] 400 mg PO Q6H PRN 06/17/21 06/17/21 History Phentermine HCl 37.5 mg PO DAILY 06/17/21 06/17/21 History Allergies Allergy/AdvReac Type Severity Reaction Status Date / Time bupropion [From Wellbutrin] AdvReac Itching Verified 06/17/21 07:19 Physical Exam Vitals: Vital Signs Temp Pulse Pulse Pulse Resp BP BP 06/17/21 07:00 98.3 F 92 18 120/73 06/17/21 03:33 98.7 F 96 16 111/73 06/17/21 03:00 99.7 F H 82 16 116/80 06/17/21 02:45 99.7 F H 87 16 114/68 06/17/21 02:30 100.2 F H 89 20 115/80 06/17/21 02:00 89 20 116/66 06/17/21 01:00 86 20 116/78 06/17/21 00:30 100.9 F H 90 16 128/80 06/17/21 00:15 90 16 128/81 06/17/21 00:00 90 16 126/80 06/16/21 23:45 92 20 140/77 06/16/21 23:30 102.6 F H 82 92 16 136/77 06/16/21 23:08 102.6 F H 109 H 20 132/76 Pulse Ox 06/17/21 07:00 98 06/17/21 03:33 97 06/17/21 03:00 98 06/17/21 02:45 97 06/17/21 02:30 97 06/17/21 02:00 98 06/17/21 01:00 98 06/17/21 00:30 97 06/17/21 00:15 98 06/17/21 00:00 97 06/16/21 23:45 98 06/16/21 23:30 98 06/16/21 23:08 98 Intake and Output 06/16/21 06/17/21 06/17/21 22:59 06:59 14:59 Intake Total 120 Output Total 1 Balance 119 Intake: Oral 120 Output: Emesis 1 Other: Voiding Method Toilet # Voids 1 Weight 90.718 kg PHYSICAL EXAM: VITAL SIGNS: [As above] GENERAL: Sitting up in bed, uncomfortable-holding head HEENT: Pupils equal and reactive,Conjunctivae normal. eyes normal. NECK: No JVD. No thyroid enlargement. No LNs CARDIOVASCULAR: S1, S2 regular.. No murmur RESPIRATION: Breath sounds diminished in the bases. No rhonchi or crackles. No bronchial breathing. ABDOMEN: Soft, nontender . No guarding. no masses palpable. No ascites, No hepatosplenomegaly.Bowel sounds heard. LEGS: No edema. no swelling PSYCHIATRY: Alert and oriented X3, mood and affect normal. NERVOUS SYSTEM: Cranial N 2-12 grossly normal. Moves all 4 limbs. No focal deficits. Strength and sensation grossly intact. Skin: Warm and dry, no rash Results CBC & Chem 7: 06/16/21 23:57 06/16/21 23:57 Labs: Abnormal Lab Results - Last 24 Hours (Table) 06/16/21 06/16/21 06/17/21 Range/Units 23:57 23:57 00:41 Neutrophils # 8.7 H (1.3-7.7) k/uL Lymphocytes # 0.3 L (1.0-4.8) k/uL Sodium 136 L (137-145) mmol/L Urine Blood Trace H (Negative) Urine Mucus Rare H (None) /hpf Thrombosis Risk Factor Assmnt - Choose All That Apply Any of the Below Risk Factors Present?: Yes Each Factor Represents 1 point: Obesity (BMI >25) Other Risk Factors: No Other congenital or acquired thrombophilia - If yes, enter type in comment: No Thrombosis Risk Factor Assessment Total Risk Factor Score: 1 Thrombosis Risk Factor Assessment Level: Low Risk Assessment and Plan Assessment: Cephalgia of greater than 2 months, continuous 1 week, CT reporting left temporal lobe mass Vasogenic edema secondary to the above Fever, workup in progress, on empiric antibiotics ADD, ADHD Former nicotine dependence, quit smoking March 2021 Family history of CAD, ID, cervical cancer Plan: Continue on current medication regime ,monitoring and antibiotic treatment. Brain MRI pending. Maintain Decadron IV . Close monitoring of Accu-Cheks with NovoLog sliding scale ordered. Blood cultures pending, continue on empiric IV antibiotics. Evaluated by neurology, recommending patient be transferred to tertiary center for neurosurgical evaluation. Transfer initiated. [facility] has accepted patient, Dr. Hines spoke with the neurosurge on fellow. Patient will be transferred to [facility] in a stable condition with guarded prognosis for neurosurgical evaluation which is not available at this site. The impression and plan of care has been dictated as directed. : I performed a history and examination of this patient, discussed the same with the dictator. I agree with the dictator's note ,documented as a scribe. Any additional findings or plans will be noted.
--- NOTE | 2021-06-17 12:59 | MR ---
EXAMINATION TYPE: MR brain wo/w con DATE OF EXAM: 06/17/2021 COMPARISON: CT brain from yesterday HISTORY: Left brain mass, abnormal CT. TECHNIQUE: Multiplanar, multisequence images of the brain and brainstem is performed without and with IV contras t, utilizing 9 mL intravenous Gadavist . FINDINGS: Diffusion weighted images demonstrate no evidence of a recent infarct or other diffusion ab normality. The ventricular system and cisternal spaces are normal in size and appearance. The brain volume is age appropriate. Corresponding to CT there is homogeneous strongly enhancing left temporal mass measuring 3.0 x 2.6 cm axial image 9 x 2.7 cm craniocaudal dimension coronal image 17. There is surrounding vasogenic edema extending superiorly with subtle slight midline shift to the right measuring 3 mm. Extra-axial locat ion suspected meningioma is favored especially given slight hyperdense appearance on CT. No additiona l enhancing masses. The craniocervical junction appears within normal limits. The dural venous sinuses appear patent. Th e visualized sinuses are clear and the globes are intact. IMPRESSION: There is 3.0 cm avid enhancing left temporal mass with vasogenic edema and subtle midline shift suspected meningioma. Advise neurosurgical referral.
--- NOTE | 2021-06-17 13:14 | P.CONS ---
History of Present Illness - Reason for Consult Consult date: 06/17/21 brain mass Requesting physician: Soy Kuhn - Chief Complaint PAZ, LUE weakness, vomting - History of Present Illness Mrs. Gannon is a very pleasant 41 year old female who is admitted with c/o severe, intractable PAZ, associated with LUE weakness and nausea with vomiting. She has had severe symptoms for the last day or so, if she thinks back, she started having symptoms about 3 mo ago. She is having fever, chills. Denies oral irritation, difficulty swallowing, chest pain, abd pain, acute changes in bowel or bladder. She denies personal Hx of cancer. Sister have cervical cancer in her 20's, another sister had ovaries removed-not sure if malignant-grandmother with breast cancer later in life. 1/2 PPD smoker since she was 15, quit in Mar, vaping occasionally. She had a mammogram in the last year the she reports was normal. She has had a hysterectomy 2/2 menorrhagia. No Hx of miscarriage. No other medical Hx. Review of Systems 10 point ROS is neg except as stated in HPI Past Medical History Past Medical History: No Reported History History of Any Multi-Drug Resistant Organisms: None Reported Past Surgical History: Adenoidectomy, Section, Cholecystectomy, Tubal Ligation Additional Past Surgical History / Comment(s): uterus removed Past Anesthesia/Blood Transfusion Reactions: No Reported Reaction Past Psychological History: ADD/ADHD Smoking Status: Former smoker Past Alcohol Use History: Rare Additional Past Alcohol Use History / Comment(s): quit smoking march 2021 Past Drug Use History: None Reported - Past Family History Mother Family Medical History: Coronary Artery Disease (CAD), Myocardial Infarction (HI) Sister(s) Additional Family Medical History / Comment(s): cervical cancer Medications and Allergies Home Medications Medication Instructions Recorded Confirmed Type Ergocalciferol [Vitamin D2 (1250 1,250 mcg PO BENTLEY 06/17/21 06/17/21 History Mcg = 87380 Iu)] Ibuprofen [Motrin Ib] 400 mg PO Q6H PRN 06/17/21 06/17/21 History Phentermine HCl 37.5 mg PO DAILY 06/17/21 06/17/21 History Allergies Allergy/AdvReac Type Severity Reaction Status Date / Time bupropion [From Wellbutrin] AdvReac Itching Verified 06/17/21 07:19 Physical Exam Vitals: Vital Signs Temp Pulse Pulse Pulse Resp BP BP 06/17/21 07:00 98.3 F 92 18 120/73 06/17/21 03:33 98.7 F 96 16 111/73 06/17/21 03:00 99.7 F H 82 16 116/80 06/17/21 02:45 99.7 F H 87 16 114/68 06/17/21 02:30 100.2 F H 89 20 115/80 06/17/21 02:00 89 20 116/66 06/17/21 01:00 86 20 116/78 06/17/21 00:30 100.9 F H 90 16 128/80 06/17/21 00:15 90 16 128/81 06/17/21 00:00 90 16 126/80 06/16/21 23:45 92 20 140/77 06/16/21 23:30 102.6 F H 82 92 16 136/77 06/16/21 23:08 102.6 F H 109 H 20 132/76 Pulse Ox 06/17/21 07:00 98 06/17/21 03:33 97 06/17/21 03:00 98 06/17/21 02:45 97 06/17/21 02:30 97 06/17/21 02:00 98 06/17/21 01:00 98 06/17/21 00:30 97 06/17/21 00:15 98 06/17/21 00:00 97 06/16/21 23:45 98 06/16/21 23:30 98 06/16/21 23:08 98 Intake and Output 06/16/21 06/17/21 06/17/21 22:59 06:59 14:59 Intake Total 120 Output Total 1 Balance 119 Intake: Oral 120 Output: Emesis 1 Other: Voiding Method Toilet # Voids 1 Weight 90.718 kg - Constitutional General appearance: average body habitus, cooperative, severe distress - EENT Eyes: anicteric sclerae, EOMI ENT: hearing grossly normal - Neck Neck: no lymphadenopathy - Respiratory Respiratory: bilateral: CTA - Cardiovascular Rhythm: regular Heart sounds: normal: S1, S2 Abnormal Heart Sounds: no systolic murmur, no diastolic murmur, no rub, no S3 Gallop, no S4 Gallop, no click, no other leg Peripheral Edema: bilateral: None - Gastrointestinal General gastrointestinal: no absent bowel sounds, no decreased bowel sounds, no distended, no hepatomegaly, no hyperactive bowel sounds, normal bowel sounds, no organomegaly, no rigid, no scaphoid, soft, no splenomegaly, no tenderness, no umbilical hernia, no ventral hernia - Integumentary Integumentary: normal - Neurologic Mild LUE weakness - Psychiatric Psychiatric: A&O x's 3, appropriate affect, intact judgment & insight Results CBC & Chem 7: 06/16/21 23:57 06/16/21 23:57 Labs: Abnormal Lab Results - Last 24 Hours (Table) 06/16/21 06/16/21 06/17/21 Range/Units 23:57 23:57 00:41 Neutrophils # 8.7 H (1.3-7.7) k/uL Lymphocytes # 0.3 L (1.0-4.8) k/uL Sodium 136 L (137-145) mmol/L Urine Blood Trace H (Negative) Urine Mucus Rare H (None) /hpf CT Scan - head: report reviewed Assessment and Plan (1) Mass of left temporal lobe Narrative/Plan: Neurology was seeing pt when in the room. Agree with their plan for MRI brain and start of steroids for vasogenic edema. Discussed case with Rad Onc who will see pt CT brain without contrast reveals 1 temporal lesion. Typically, brain primaries will present as a solitary lesion vs metastatic lesions which typically present as multiple lesions. Pending MRI. Have ordered a CT CAP to evaluate for a possible other primary, once pt more stable. Current Visit: Yes Status: Acute Priority: High Code(s): G93.89 - OTHER SPECIFIED DISORDERS OF BRAIN SNOMED Code(s): 655252436 (2) Fever Narrative/Plan: Pancultures pending. Empiric abx ordered. Current Visit: Yes Status: Acute Priority: High Code(s): R50.9 - FEVER, UNSPECIFIED SNOMED Code(s): 994611147 Time with Patient: Greater than 30
== END 2021-06-17 14:15 | disposition other institution (70) | DRG 54 ==
LOC: EC 22:52 → 6NMEDSUR 06-17 00:37 → 5NMEDONC 06-17 01:11 → 6NMEDSUR 06-17 01:14 → OBSVTOIN 06-17 10:42
PROVIDERS: ADMIT Family Medicine; ATTEND Family Medicine
DX: D32.0 Benign neoplasm of cerebral meninges (principal); G93.6 Cerebral edema; G81.94 Hemiplegia, unspecified affecting left nondominant side; G91.9 Hydrocephalus, unspecified; F17.290 Nicotine dependence, other tobacco product, uncomplicated; Z20.822 Contact with and (suspected) exposure to COVID-19; F90.9 Attention-deficit hyperactivity disorder, unspecified type; I48.91 Unspecified atrial fibrillation; R00.0 Tachycardia, unspecified; Z90.710 Acquired absence of both cervix and uterus; Z98.51 Tubal ligation status; Z88.6 Allergy status to analgesic agent; Z80.49 Family history of malignant neoplasm of other genital organs; Z82.49 Family history of ischemic heart disease and other diseases of the circulatory system
CPT/HCPCS: 36415; 70450; 70553; 71045; 80053; 80306; 80320; 81001; 83605; 84484; 85025; 85610; 85730; 87040; 87635; 93005; 96361; 96374; 99285

== ENCOUNTER → 2023-02-17 | Outpatient (CLI) | payer BC ==
--- NOTE | 2023-02-18 18:44 | MM ---
Reason for Exam: Screening (asymptomatic). Last mammogram was performed 2 year(s) and 2 month(s) ago. Patient History: Menarche at age 12. First Full-Term at age 23. Hysterectomy at age 38. Maternal grandmother had breast cancer. Maternal aunt had breast cancer, age 65. Risk Values: Anisha 5 year model risk: 0.6%. NCI Lifetime model risk: 9.8%. Prior Study Comparison: 01/02/2021 Bilateral Diagnostic Mammogram, [facility]. Tissue Density: The breast tissue is heterogeneously dense. This may lower the sensitivity of mammography. Findings: Analyzed By CAD. Pattern appears stable. No significant interval change is evident. No suspicious groups of microcalcifications, spiculated or lobular masses, architectural distortion or other secondary signs of malignancy are mammographically apparent. Overall Assessment: Benign, BI-RAD 2 Management: Screening Mammogram of both breasts in 1 year. A negative mammogram report should not preclude additional follow up of suspicious palpable abnormalities. Patient should continue monthly self breast exam. A clinical breast exam by your physician is recommended on an annual basis and results should be correlated with mammographic findings. Electronically signed and approved by: Luis Alfredo Kirkpatrick D.O. Radiologis
== END | disposition home or self-care (01) ==
LOC: RADMAMWWP 14:57
PROVIDERS: ATTEND Family Medicine
DX: Z12.31 Encounter for screening mammogram for malignant neoplasm of breast (principal); Z80.3 Family history of malignant neoplasm of breast
CPT/HCPCS: 77063; 77067

== ENCOUNTER → 2023-12-23 | Outpatient (CLI) | payer BC ==
--- NOTE | 2023-12-25 14:20 | XR ---
EXAMINATION TYPE: XR foot limited LT DATE OF EXAM: 12/23/2023 COMPARISON: None HISTORY: Pain TECHNIQUE: Left foot is examined in 2 views FINDINGS: There is a large plantar calcaneal heel spur. Small Achilles tendon calcaneal heel spurs pr esent. There is mild soft tissue swelling over the dorsum of the foot. No acute fracture or dislocation is evident. Joint spaces are preserved. Follow up exams can be performed 7-10 days from acute trauma for continued pain IMPRESSION: 1. Calcaneal heel spurs
== END | disposition home or self-care (01) ==
LOC: RADXRMAIN 10:46
PROVIDERS: ATTEND Family Medicine
DX: M77.32 Calcaneal spur, left foot (principal)

== ENCOUNTER → 2024-02-24 | Outpatient (CLI) | payer BC ==
--- NOTE | 2024-02-25 08:42 | MM ---
Reason for Exam: Screening (asymptomatic). Last screening mammogram was performed 12 month(s) ago. Patient History: Menarche at age 12. First Full-Term at age 23. Hysterectomy at age 38. Maternal grandmother had breast cancer. Maternal aunt had breast cancer, age 65. Risk Values: Anisha 5 year model risk: 0.6%. NCI Lifetime model risk: 9.7%. Prior Study Comparison: 01/02/2021 Bilateral Diagnostic Mammogram, [facility]. 02/17/2023 Bilateral MG 3D screening mammo w/cad, [facility]. Tissue Density: The breasts are heterogeneously dense, which may obscure small masses. Findings: Analyzed By CAD. There is no suspicious group of microcalcifications or new suspicious mass in either breast. Overall Assessment: Negative, BI-RAD 1 Management: Screening Mammogram of both breasts in 1 year. . Patient should continue monthly self-breast exams. A clinical breast exam by your physician is recommended on an annual basis. This exam should not preclude additional follow-up of suspicious palpable abnormalities. Note on Anisha scores and lifetime risk: 1. A Anisha score greater than 3% is considered moderate risk. If this is the case, consider specialist referral to assess eligibility for a risk reducing agent. 2. If overall lifetime risk for the development of breast cancer is 20% or higher, the patient may qualify for future screening with alternating mammogram and breast MRI. Electronically signed and approved by: Gulshan Bain M.D. [facility]olog[facility]
== END | disposition home or self-care (01) ==
LOC: RADMAMWWP 08:22
PROVIDERS: ATTEND Family Medicine
DX: Z80.3 Family history of malignant neoplasm of breast
CPT/HCPCS: 77063; 77067